=== PATIENT | female | born 1955 | race American Indian/Alaskan Native ===

== ENCOUNTER 2017-01-30 20:38 | Inpatient (IN) | payer OTHER ==
[2017-01-30] MEDS ORDERED: NACL 0.9% 1000 ML 1,000 ML IV ONE ×2 (21:28)
[2017-01-30 21:56] LABS: Alanine Aminotransferase 12 units/L (7-56); Albumin 3.5 g/dL (3.9-5); Albumin/Globulin Ratio 0.8 %; Alkaline Phosphatase 173 units/L (35-129); Anion Gap 21 mmol/L; BUN/Creatinine Ratio 46.66; Blood Urea Nitrogen 42 mg/dL (7-17); Calcium 11.7 mg/dL (8.4-10.2); Carbon Dioxide 29 mmol/L (22-30); Glucose 176 mg/dL (65-100); Hematocrit 31.9 % (30.3-42.9); Hemoglobin 9.7 gm/dl (10.1-14.3); Mean Corpuscular HGB Conc 30 % (30-34); Mean Corpuscular Volume 73 fl (79-97); Platelet Count 503 K/mm3 (140-440); Potassium 4.4 mmol/L (3.6-5.0); Red Blood Count 4.35 M/mm3 (3.65-5.03); Sodium 139 mmol/L (137-145); Total Protein 7.8 g/dL (6.3-8.2); White Blood Count 19.6 K/mm3 (4.5-11.0)
--- NOTE | 2017-01-30 22:03 | Emergency Department Report ---
ED General Adult HPI - General Chief complaint: Altered Mental Status Stated complaint: POSS DEHYDRATION/VOMITING/CANCER Time Seen by Provider: 01/30/17 21:28 Source: family, old records reviewed Mode of arrival: Wheelchair Limitations: No Limitations - History of Present Illness Initial comments: 61-year-old female with a past medical history of cervical cancer presents to the hospital complains of not eating or drinking the last several days. Patient only taken her oxycodone as needed for pain. Mild lethargy reported by patient alert and oriented 3. Patient denies any pain, fever, nausea, vomiting , dysuria, cough, or shortness of breath. Patient was receiving chemotherapy every 21 days but has not received a chemotherapy treatment in the past 2 months. Positive surgical history of total radical hysterectomy secondary to cervical cancer. Her oncologist is Dr. Peralta currently affiliated with [facility]. Patient has very limited medical records available here for evaluation. Patient also having intermittent vomiting for last 1-2 weeks worse the last several days. - Related Data Allergies Allergy/AdvReac Type Severity Reaction Status Date / Time meperidine HCl [From Demerol] Allergy Hives Verified 05/20/16 10:17 ED Review of Systems ROS: Stated complaint: POSS DEHYDRATION/VOMITING/CANCER Other details as noted in HPI Comment: All other systems reviewed and negative Other: Constitutional: No fevers chills Eyes: No eye pain visual changes ENT: No ear pain or throat pain Neck: Denies pain Respiratory: Denies cough wheezing shortness of breath Cardiovascular: Denies chest pain, palpitations, syncope GI: Denies abdominal pain : Denies dysuria Musculoskeletal: Denies back pain Skin: Denies rash, lesions, erythema Neurologic: Denies headache, numbness Psychiatric: Denies suicidal ideation, hallucinations ED Past Medical Hx - Past Medical History Previous Medical History?: Yes Hx of Cancer: Yes (cervical cancer) - Surgical History Past Surgical History?: Yes Additional Surgical History: hysterectomy - Social History Smoking Status: Never Smoker Substance Use Type: None ED Physical Exam - General Limitations: No Limitations - Other Other exam information: General: No limitations, thin and frail-appearing Head exam: Atraumatic, normocephalic Eyes exam: Normal appearance ENT: Moist mucous membrane, normal oropharynx Neck exam: Normal inspection, full range of motion, no meningismus nontender Respiratory exam: Faint crackles at the bases without wheezes, rales, or tachypnea Cardiovascular: Tachycardia regular rhythm. Heart rate increases from 130s to 160s was sitting up in the bed and also at rest will go down to the 80s. Repeat blood pressure 113/82 prior to initiated IV fluid Abdomen: Soft, appears to be distended but patient states that her abdomen is normal size. Denies previous paracentesis. Nontender to palpation or rebound or guarding Extremity: Full range of motion normal inspection no deformity, no edema, no calf tenderness, no leg asymmetry Back: Normal Inspection, full range of motion, no tenderness Neurologic: Alert, oriented x3, cranial nerves intact, no motor or sensory deficit Psychiatric: normal affect, normal mood Skin: Warm, dry, intact ED Course Vital Signs 01/30/17 01/30/17 01/30/17 20:48 21:12 21:30 Temperature 98.4 F Pulse Rate 148 H 148 H Respiratory 12 31 H Rate Blood Pressure 89/58 72/56 O2 Sat by Pulse 96 100 95 Oximetry 01/30/17 01/30/17 01/30/17 22:00 22:17 22:30 Temperature Pulse Rate 136 H 139 H Respiratory 20 21 31 H Rate Blood Pressure 110/87 110/80 104/72 O2 Sat by Pulse 88 84 90 Oximetry 01/30/17 01/30/17 01/31/17 23:00 23:30 00:21 Temperature Pulse Rate 136 H 128 H 134 H Respiratory 35 H 29 H 34 H Rate Blood Pressure 102/70 88/70 105/77 O2 Sat by Pulse 87 97 94 Oximetry 01/31/17 01/31/17 01/31/17 00:30 01:01 01:31 Temperature Pulse Rate 131 H 139 H Respiratory 34 H 21 Rate Blood Pressure 100/74 92/65 96/69 O2 Sat by Pulse 94 94 66 L Oximetry 01/31/17 01/31/17 01/31/17 02:01 02:30 02:55 Temperature Pulse Rate 141 H 134 H Respiratory 33 H 25 H 12 Rate Blood Pressure 53/34 105/80 O2 Sat by Pulse 85 97 90 Oximetry 01/31/17 01/31/17 01/31/17 03:00 03:31 04:25 Temperature Pulse Rate 135 H Respiratory 16 Rate Blood Pressure 117/72 101/70 103/75 O2 Sat by Pulse 95 95 Oximetry 01/31/17 04:30 Temperature Pulse Rate 124 H Respiratory 22 Rate Blood Pressure 78/46 O2 Sat by Pulse 95 Oximetry - Reevaluation(s) Reevaluation #1: 01/31/17 05:10 During ED stay. Attempted to obtain CT however, patient is supine she developed vomiting. She was treated with Zofran 8 mg without improvement. Then patient gave her Reglan and Benadryl is still having nausea when supine. NG tube ordered with viscous lidocaine. Initial output minimal. Patient vomited after NG tube and then suctioning was more effective of NG tube. Patient then finally able to obtain CT scan while supine. 01/31/17 05:32 Nurse directed to reposition ngt tube after ct scan review - Consultations Consultation #1: 01/30/17 23:10 case d/w Dr Camacho cardiology, will evaluate pt during admission Consultation #2: 01/31/17 05:31 Dr Fajardo surgeon consulted. Will evaluate pt ED Medical Decision Making - Lab Data Result diagrams: 01/30/17 20:58 01/30/17 20:58 Lab Results 01/30/17 01/30/17 01/30/17 Range/Units 20:58 20:58 20:58 WBC 19.6 H (4.5-11.0) K/mm3 RBC 4.35 (3.65-5.03) M/mm3 Hgb 9.7 L (10.1-14.3) gm/dl Hct 31.9 (30.3-42.9) % MCV 73 L (79-97) fl MCH 22 L (28-32) pg MCHC 30 (30-34) % RDW 19.0 H (13.2-15.2) % Plt Count 503 H (140-440) K/mm3 Lymph % (Auto) 6.0 L (13.4-35.0) % [place] % (Auto) 5.0 (0.0-7.3) % Eos % (Auto) 0.0 (0.0-4.3) % Baso % (Auto) 0.0 (0.0-1.8) % Lymph # 1.2 (1.2-5.4) K/mm3 Pitt # 1.0 H (0.0-0.8) K/mm3 Eos # 0.0 (0.0-0.4) K/mm3 Baso # 0.0 (0.0-0.1) K/mm3 Seg Neutrophils % 89.0 H (40.0-70.0) % Seg Neutrophils # 17.4 H (1.8-7.7) K/mm3 VBG pH (7.320-7.420) Sodium 139 (137-145) mmol/L Potassium 4.4 (3.6-5.0) mmol/L Chloride 93.0 L (98-107) mmol/L Carbon Dioxide 29 (22-30) mmol/L Anion Gap 21 mmol/L BUN 42 H (7-17) mg/dL Creatinine 0.9 (0.7-1.2) mg/dL Estimated GFR > 60 ml/min BUN/Creatinine Ratio 46.66 % Glucose 176 H (65-100) mg/dL Lactic Acid 3.60 H* (0.7-2.0) mmol/L Calcium 11.7 H (8.4-10.2) mg/dL Magnesium 2.20 (1.7-2.3) mg/dL Total Bilirubin 0.60 (0.1-1.2) mg/dL AST 20 (5-40) units/L ALT 12 (7-56) units/L Alkaline Phosphatase 173 H (35-129) units/L Total Creatine Kinase (30-135) units/L CK-MB (CK-2) (0.0-4.0) ng/mL CK-MB (CK-2) Rel Index (0-4) Troponin T (0.00-0.029) ng/mL Total Protein 7.8 (6.3-8.2) g/dL Albumin 3.5 L (3.9-5) g/dL Albumin/Globulin Ratio 0.8 % Triglycerides (2-149) mg/dL Cholesterol (50-199) mg/dL LDL Cholesterol Direct (50-130) mg/dL HDL Cholesterol (40-59) mg/dL Cholesterol/HDL Ratio % TSH (0.270-4.200) mlU/mL Urine Color (Yellow) Urine Turbidity (Clear) Urine pH (5.0-7.0) Ur Specific [place] (1.003-1.030) Urine Protein (Negative) mg/dL Urine Glucose (UA) (Negative) mg/dL Urine Ketones (Negative) mg/dL Urine Blood (Negative) Urine Nitrite (Negative) Urine Bilirubin (Negative) Urine Urobilinogen (<2.0) mg/dL Ur Leukocyte Esterase (Negative) Urine WBC (Auto) (0.0-6.0) /HPF Urine RBC (Auto) (0.0-6.0) /HPF U Epithel Cells (Auto) (0-13.0) /HPF Urine Bacteria (Auto) (Negative) /HPF Uric Acid Crystals Urine Mucus /HPF Salicylates (2.8-20.0) mg/dL Urine Opiates Screen Urine Methadone Screen Acetaminophen (10.0-30.0) ug/mL Ur Barbiturates Screen Ur Phencyclidine Scrn Ur Amphetamines Screen U Benzodiazepines Scrn Urine Cocaine Screen U Marijuana (THC) Screen Drugs of Abuse Note Plasma/Serum Alcohol (0-0.07) gm% 01/30/17 01/30/17 01/30/17 Range/Units 20:58 20:58 20:58 WBC (4.5-11.0) K/mm3 RBC (3.65-5.03) M/mm3 Hgb (10.1-14.3) gm/dl Hct (30.3-42.9) % MCV (79-97) fl MCH (28-32) pg MCHC (30-34) % RDW (13.2-15.2) % Plt Count (140-440) K/mm3 Lymph % (Auto) (13.4-35.0) % Pitt % (Auto) (0.0-7.3) % Eos % (Auto) (0.0-4.3) % Baso % (Auto) (0.0-1.8) % Lymph # (1.2-5.4) K/mm3 Pitt # (0.0-0.8) K/mm3 Eos # (0.0-0.4) K/mm3 Baso # (0.0-0.1) K/mm3 Seg Neutrophils % (40.0-70.0) % Seg Neutrophils # (1.8-7.7) K/mm3 VBG pH (7.320-7.420) Sodium (137-145) mmol/L Potassium (3.6-5.0) mmol/L Chloride (98-107) mmol/L Carbon Dioxide (22-30) mmol/L Anion Gap mmol/L BUN (7-17) mg/dL Creatinine (0.7-1.2) mg/dL Estimated GFR ml/min BUN/Creatinine Ratio % Glucose (65-100) mg/dL Lactic Acid (0.7-2.0) mmol/L Calcium (8.4-10.2) mg/dL Magnesium (1.7-2.3) mg/dL Total Bilirubin (0.1-1.2) mg/dL AST (5-40) units/L ALT (7-56) units/L Alkaline Phosphatase (35-129) units/L Total Creatine Kinase (30-135) units/L CK-MB (CK-2) (0.0-4.0) ng/mL CK-MB (CK-2) Rel Index (0-4) Troponin T (0.00-0.029) ng/mL Total Protein (6.3-8.2) g/dL Albumin (3.9-5) g/dL Albumin/Globulin Ratio % Triglycerides (2-149) mg/dL Cholesterol (50-199) mg/dL LDL Cholesterol Direct (50-130) mg/dL HDL Cholesterol (40-59) mg/dL Cholesterol/HDL Ratio % TSH 1.490 (0.270-4.200) mlU/mL Urine Color (Yellow) Urine Turbidity (Clear) Urine pH (5.0-7.0) Ur Specific [place] (1.003-1.030) Urine Protein (Negative) mg/dL Urine Glucose (UA) (Negative) mg/dL Urine Ketones (Negative) mg/dL Urine Blood (Negative) Urine Nitrite (Negative) Urine Bilirubin (Negative) Urine Urobilinogen (<2.0) mg/dL Ur Leukocyte Esterase (Negative) Urine WBC (Auto) (0.0-6.0) /HPF Urine RBC (Auto) (0.0-6.0) /HPF U Epithel Cells (Auto) (0-13.0) /HPF Urine Bacteria (Auto) (Negative) /HPF Uric Acid Crystals Urine Mucus /HPF Salicylates < 0.3 L (2.8-20.0) mg/dL Urine Opiates Screen Urine Methadone Screen Acetaminophen < 15.0 (10.0-30.0) ug/mL Ur Barbiturates Screen Ur Phencyclidine Scrn Ur Amphetamines Screen U Benzodiazepines Scrn Urine Cocaine Screen U Marijuana (THC) Screen Drugs of Abuse Note Plasma/Serum Alcohol (0-0.07) gm% 01/30/17 01/30/17 01/30/17 Range/Units 20:58 21:50 22:45 WBC (4.5-11.0) K/mm3 RBC (3.65-5.03) M/mm3 Hgb (10.1-14.3) gm/dl Hct (30.3-42.9) % MCV (79-97) fl MCH (28-32) pg MCHC (30-34) % RDW (13.2-15.2) % Plt Count (140-440) K/mm3 Lymph % (Auto) (13.4-35.0) % Pitt % (Auto) (0.0-7.3) % Eos % (Auto) (0.0-4.3) % Baso % (Auto) (0.0-1.8) % Lymph # (1.2-5.4) K/mm3 Pitt # (0.0-0.8) K/mm3 Eos # (0.0-0.4) K/mm3 Baso # (0.0-0.1) K/mm3 Seg Neutrophils % (40.0-70.0) % Seg Neutrophils # (1.8-7.7) K/mm3 VBG pH 7.370 (7.320-7.420) Sodium (137-145) mmol/L Potassium (3.6-5.0) mmol/L Chloride (98-107) mmol/L Carbon Dioxide (22-30) mmol/L Anion Gap mmol/L BUN (7-17) mg/dL Creatinine (0.7-1.2) mg/dL Estimated GFR ml/min BUN/Creatinine Ratio % Glucose (65-100) mg/dL Lactic Acid (0.7-2.0) mmol/L Calcium (8.4-10.2) mg/dL Magnesium (1.7-2.3) mg/dL Total Bilirubin (0.1-1.2) mg/dL AST (5-40) units/L ALT (7-56) units/L Alkaline Phosphatase (35-129) units/L Total Creatine Kinase (30-135) units/L CK-MB (CK-2) (0.0-4.0) ng/mL CK-MB (CK-2) Rel Index (0-4) Troponin T (0.00-0.029) ng/mL Total Protein (6.3-8.2) g/dL Albumin (3.9-5) g/dL Albumin/Globulin Ratio % Triglycerides (2-149) mg/dL Cholesterol (50-199) mg/dL LDL Cholesterol Direct (50-130) mg/dL HDL Cholesterol (40-59) mg/dL Cholesterol/HDL Ratio % TSH (0.270-4.200) mlU/mL Urine Color [place] (Yellow) Urine Turbidity Cloudy (Clear) Urine pH 5.0 (5.0-7.0) Ur Specific [place] 1.023 (1.003-1.030) Urine Protein 100 mg/dl (Negative) mg/dL Urine Glucose (UA) 50 (Negative) mg/dL Urine Ketones Tr (Negative) mg/dL Urine Blood Mod (Negative) Urine Nitrite Neg (Negative) Urine Bilirubin Neg (Negative) Urine Urobilinogen 4.0 (<2.0) mg/dL Ur Leukocyte Esterase Lg (Negative) Urine WBC (Auto) 55.0 H (0.0-6.0) /HPF Urine RBC (Auto) 106.0 (0.0-6.0) /HPF U Epithel Cells (Auto) 4.0 (0-13.0) /HPF Urine Bacteria (Auto) 1+ (Negative) /HPF Uric Acid Crystals 1+ Urine Mucus 1+ /HPF Salicylates (2.8-20.0) mg/dL Urine Opiates Screen Urine Methadone Screen Acetaminophen (10.0-30.0) ug/mL Ur Barbiturates Screen Ur Phencyclidine Scrn Ur Amphetamines Screen U Benzodiazepines Scrn Urine Cocaine Screen U Marijuana (THC) Screen Drugs of Abuse Note Plasma/Serum Alcohol < 0.01 (0-0.07) gm% 01/30/17 01/30/17 01/31/17 Range/Units 22:45 Unknown 01:02 WBC (4.5-11.0) K/mm3 RBC (3.65-5.03) M/mm3 Hgb (10.1-14.3) gm/dl Hct (30.3-42.9) % MCV (79-97) fl MCH (28-32) pg MCHC (30-34) % RDW (13.2-15.2) % Plt Count (140-440) K/mm3 Lymph % (Auto) (13.4-35.0) % Pitt % (Auto) (0.0-7.3) % Eos % (Auto) (0.0-4.3) % Baso % (Auto) (0.0-1.8) % Lymph # (1.2-5.4) K/mm3 Pitt # (0.0-0.8) K/mm3 Eos # (0.0-0.4) K/mm3 Baso # (0.0-0.1) K/mm3 Seg Neutrophils % (40.0-70.0) % Seg Neutrophils # (1.8-7.7) K/mm3 VBG pH (7.320-7.420) Sodium (137-145) mmol/L Potassium (3.6-5.0) mmol/L Chloride (98-107) mmol/L Carbon Dioxide (22-30) mmol/L Anion Gap mmol/L BUN (7-17) mg/dL Creatinine (0.7-1.2) mg/dL Estimated GFR ml/min BUN/Creatinine Ratio % Glucose (65-100) mg/dL Lactic Acid (0.7-2.0) mmol/L Calcium (8.4-10.2) mg/dL Magnesium (1.7-2.3) mg/dL Total Bilirubin (0.1-1.2) mg/dL AST (5-40) units/L ALT (7-56) units/L Alkaline Phosphatase (35-129) units/L Total Creatine Kinase 55 (30-135) units/L CK-MB (CK-2) 4.0 (0.0-4.0) ng/mL CK-MB (CK-2) Rel Index 7.2 H (0-4) Troponin T 0.244 H* 0.179 H* D (0.00-0.029) ng/mL Total Protein (6.3-8.2) g/dL Albumin (3.9-5) g/dL Albumin/Globulin Ratio % Triglycerides 202 H (2-149) mg/dL Cholesterol 145 (50-199) mg/dL LDL Cholesterol Direct 57 (50-130) mg/dL HDL Cholesterol 48 (40-59) mg/dL Cholesterol/HDL Ratio 3.02 % TSH (0.270-4.200) mlU/mL Urine Color (Yellow) Urine Turbidity (Clear) Urine pH (5.0-7.0) Ur Specific [place] (1.003-1.030) Urine Protein (Negative) mg/dL Urine Glucose (UA) (Negative) mg/dL Urine Ketones (Negative) mg/dL Urine Blood (Negative) Urine Nitrite (Negative) Urine Bilirubin (Negative) Urine Urobilinogen (<2.0) mg/dL Ur Leukocyte Esterase (Negative) Urine WBC (Auto) (0.0-6.0) /HPF Urine RBC (Auto) (0.0-6.0) /HPF U Epithel Cells (Auto) (0-13.0) /HPF Urine Bacteria (Auto) (Negative) /HPF Uric Acid Crystals Urine Mucus /HPF Salicylates (2.8-20.0) mg/dL Urine Opiates Screen Presumptive negative Urine Methadone Screen Presumptive negative Acetaminophen (10.0-30.0) ug/mL Ur Barbiturates Screen Presumptive negative Ur Phencyclidine Scrn Presumptive negative Ur Amphetamines Screen Presumptive negative U Benzodiazepines Scrn Presumptive negative Urine Cocaine Screen Presumptive negative U Marijuana (THC) Screen Presumptive negative Drugs of Abuse Note Disclamer Plasma/Serum Alcohol (0-0.07) gm% 01/31/17 Range/Units 02:40 WBC (4.5-11.0) K/mm3 RBC (3.65-5.03) M/mm3 Hgb (10.1-14.3) gm/dl Hct (30.3-42.9) % MCV (79-97) fl MCH (28-32) pg MCHC (30-34) % RDW (13.2-15.2) % Plt Count (140-440) K/mm3 Lymph % (Auto) (13.4-35.0) % Pitt % (Auto) (0.0-7.3) % Eos % (Auto) (0.0-4.3) % Baso % (Auto) (0.0-1.8) % Lymph # (1.2-5.4) K/mm3 Pitt # (0.0-0.8) K/mm3 Eos # (0.0-0.4) K/mm3 Baso # (0.0-0.1) K/mm3 Seg Neutrophils % (40.0-70.0) % Seg Neutrophils # (1.8-7.7) K/mm3 VBG pH (7.320-7.420) Sodium (137-145) mmol/L Potassium (3.6-5.0) mmol/L Chloride (98-107) mmol/L Carbon Dioxide (22-30) mmol/L Anion Gap mmol/L BUN (7-17) mg/dL Creatinine (0.7-1.2) mg/dL Estimated GFR ml/min BUN/Creatinine Ratio % Glucose (65-100) mg/dL Lactic Acid (0.7-2.0) mmol/L Calcium (8.4-10.2) mg/dL Magnesium (1.7-2.3) mg/dL Total Bilirubin (0.1-1.2) mg/dL AST (5-40) units/L ALT (7-56) units/L Alkaline Phosphatase (35-129) units/L Total Creatine Kinase (30-135) units/L CK-MB (CK-2) (0.0-4.0) ng/mL CK-MB (CK-2) Rel Index (0-4) Troponin T 0.194 H* (0.00-0.029) ng/mL Total Protein (6.3-8.2) g/dL Albumin (3.9-5) g/dL Albumin/Globulin Ratio % Triglycerides (2-149) mg/dL Cholesterol (50-199) mg/dL LDL Cholesterol Direct (50-130) mg/dL HDL Cholesterol (40-59) mg/dL Cholesterol/HDL Ratio % TSH (0.270-4.200) mlU/mL Urine Color (Yellow) Urine Turbidity (Clear) Urine pH (5.0-7.0) Ur Specific [place] (1.003-1.030) Urine Protein (Negative) mg/dL Urine Glucose (UA) (Negative) mg/dL Urine Ketones (Negative) mg/dL Urine Blood (Negative) Urine Nitrite (Negative) Urine Bilirubin (Negative) Urine Urobilinogen (<2.0) mg/dL Ur Leukocyte Esterase (Negative) Urine WBC (Auto) (0.0-6.0) /HPF Urine RBC (Auto) (0.0-6.0) /HPF U Epithel Cells (Auto) (0-13.0) /HPF Urine Bacteria (Auto) (Negative) /HPF Uric Acid Crystals Urine Mucus /HPF Salicylates (2.8-20.0) mg/dL Urine Opiates Screen Urine Methadone Screen Acetaminophen (10.0-30.0) ug/mL Ur Barbiturates Screen Ur Phencyclidine Scrn Ur Amphetamines Screen U Benzodiazepines Scrn Urine Cocaine Screen U Marijuana (THC) Screen Drugs of Abuse Note Plasma/Serum Alcohol (0-0.07) gm% - EKG Data -: EKG Interpreted by Me (sinus tach 148, LAE, Q wave inferior and possible anterolateral infarct) - EKG Data When compared to previous EKG there are: changes noted (05/22/2016 EKG shows no previous Q waves or anterolateral infarct) - Radiology Data Radiology results: report reviewed, image reviewed (chest x-ray: Bilateral pleural effusion) interpreted by me: abd xray flat and upright: no afl (interpreted by me) CT angiogram chest: Bilateral lower lobe atelectasis with moderate effusions. Mild left upper lung infiltrate. NG tube curled upon itself in the lower esophagus. No PE CT abdomen and pelvis with IV contrast: Positive IVC filter. Cholelithiasis. Peritoneal metastasis/carcinomatosis with omental caking. Mid to distal small bowel obstruction likely caused by metastatic disease. Multiple low density livers lesions. Cannot exclude or confirm hepatic metastasis. Moderate right hydronephrosis. Ureter stent present extending from proximal ureter to the bladder. Small pocket of fluid collections along the anterior margin of the liver. This is nonspecific but most likely related to metastatic disease. Largest size is 6.3 x 2.4 cm. Bilateral moderate pleural effusions. Bilateral lower lobe consolidations which are likely atelectasis. Lingular consolidation which could be infiltrate. Distal esophagus is fluid filled containing and a mildly dilated. This may be due to SBO (mid to distal sbo). - Medical Decision Making Plan admit patient to the hospital. Patient's significant tachycardia left is secondary to dehydration and possible bilateral pleural effusions. No signs of hypoxia at this time. Antibiotics ordered: Vancomycin and Zosyn Blood cultures, UA, urine culture pending at disposition EKG changes noted initial trop mildly elevated. ASA ordered. cardiology consulted. Repeat trop ordered. Repeat values stable Hosp informed Ct angio chest to r/o associated PE/pneumonia (pt unsure if port is a power port ) and ct abd/pelvis ordered with IV contrast given pt's vomiting and leukocytosis to r/o intrabdominal pathology. pending at dispo Results reviewed and surgery consulted - Differential Diagnosis dehydration, sepsis, pneumonia, UTI, PE Critical Care Time: No Critical care attestation.: If time is entered above; I have spent that time in minutes in the direct care of this critically ill patient, excluding procedure time. ED Disposition Clinical Impression: Bilateral pleural effusion, Dehydration, Sinus tachycardia, Cervical cancer, Sepsis, Elevated lactic acid level, Vomiting, Elevated troponin, Acute electrocardiogram changes, Anemia, UTI (urinary tract infection), SBO (small bowel obstruction), Pneumonia, Presence of IVC filter, Hydronephrosis of right kidney, Ureteral stent retained Disposition: [id number] OP ADMIT IP TO THIS HOSP Is pt being admited?: Yes Does the pt Need Aspirin: Yes Condition: Stable Time of Disposition: 22:22 (Dr Garner/hosp)
[2017-01-30 22:05] LABS: Mean Corpuscular Hemoglobin 22 pg (28-32)
[2017-01-30] MEDS ORDERED: ZOSYN/NS 4.5GM/100ML 4.5 GM/100 ML VIAL IV ONE (22:15)
[2017-01-30] MEDS ORDERED: VANCOMYCIN/NS 1 GM/250 ML 1 GM/250 ML BAG IV ONE (22:15)
[2017-01-30] MEDS ORDERED: ASPIRIN PO ONE (22:38)
[2017-01-30 23:03] LABS: Urine Drugs of Abuse Note Disclamer
[2017-01-30] MEDS ORDERED: NACL ONE (23:40)
[2017-01-30 23:48] LABS: Bacteria,Urine 1+ /HPF (Negative); Bilirubin,Urine NEG (Negative); Blood,Urine MOD (Negative); Ketones,Urine TR mg/dL (Negative); Leukocyte Esterase,Urine LG (Negative); Mucus,Urine 1+ /HPF; Nitrite,Urine NEG (Negative); Uric Acid Crystals,Urine 1+
[2017-01-31] MEDS ORDERED: ZOFRAN IV ONE ×2 (00:33→00:34)
[2017-01-31] MEDS ORDERED: BENADRYL IV ONE (01:52)
[2017-01-31] MEDS ORDERED: REGLAN IV ONE (01:52)
[2017-01-31] MEDS ORDERED: NACL 0.9% 1000 ML 2,000 ML ONE (02:12)
[2017-01-31] MEDS ORDERED: LIDOCAINE VISCOUS 2% PO ONE (02:53)
--- NOTE | 2017-01-31 04:50 | Cat Scan Report ---
FINAL REPORT PROCEDURE: CT ANGIO CHEST TECHNIQUE: Computerized tomographic angiography of the chest was performed after the IV injection of iodinated nonionic contrast including image processing. The image data was postprocessed using 2-dimensional multiplanar reformatted (MPR) and 3-dimensional (MIP and/or volume rendered) techniques. HISTORY: b/l effusions, cervical cancer COMPARISON: No prior studies are available for comparison. FINDINGS: Heart and pericardium: Normal. Thoracic aorta: Normal. Pulmonary vasculature: Normal. Lymph nodes: No enlarged thoracic lymph nodes. Lungs: Bilateral lower lung atelectasis with moderate effusions. Mild left upper lung infiltrate. The nasogastric tube is curled upon itself in the lower esophagus.. Pleural space: No effusion, thickening, or pneumothorax. Musculoskeletal structures: No significant abnormality. Upper abdominal structures: No significant abnormality. IMPRESSION: The traits with moderate effusions. There is no evidence of pulmonary arterial emboli. The nasogastric tube is curled upon itself in the lower esophagus.
--- NOTE | 2017-01-31 05:10 | Cat Scan Report ---
FINAL REPORT EXAM: CT ABDOMEN PELVIS W CON HISTORY: vomting, cevical cancer TECHNIQUE: CT abdomen and pelvis performed. Images extend from diaphragm to pubic symphysis. 100 cc Omnipaque 350 IV was administered. Coronal and sagittal reformatted images were obtained. PRIORS: 06/20/2016 FINDINGS: There is pulmonary consolidation in visualized lingula. There is also infiltrate versus atelectasis in the lower lobes at the lung bases. There are moderate pleural effusions bilaterally. The distal esophagus is fluid containing and mildly dilated. There is a loculated fluid collection at the anterior margin of the liver measuring 6.3 by 2.4 cm. There are additional tiny fluid loculations along the anterior liver margin. There is enhancing nodularity along the anterior peritoneal surface. There is also some soft tissue density in the omentum. Findings are consistent with peritoneal carcinomatosis and omental caking. There are some nonspecific very tiny low-density liver lesions. There is poorly defined larger liver lesion in inferior right lobe. I cannot confirm or exclude hepatic metastatic disease. There is cholelithiasis. There is an IVC filter present. There is no abdominal aortic aneurysm. Small bowel loops are fluid containing and dilated. There is small bowel caliber transition seen in the anterior abdomen. Findings are consistent with mid to distal small bowel obstruction. There is moderate right hydronephrosis. There is a right ureteral stent extending from the proximal ureter to the bladder. The presence of hydronephrosis suggests possible stent malfunction. Tissue planes in the pelvis are blurred. Bowel margins are irregular and poorly defined. This could represent inflammatory change and/or metastatic disease. IMPRESSION: Peritoneal metastases/carcinomatosis with omental caking. There is mid to distal small bowel obstruction likely caused by metastatic disease. There are multiple very small low-density liver lesions. I cannot confirm or exclude hepatic metastatic disease. Cholelithiasis. Moderate right hydronephrosis. Ureteral stent present extending from proximal ureter to the bladder. There is a small loculated fluid collections along the anterior margin of the liver. Largest measures 6.3 x 2.4 cm. This is a nonspecific but most likely relates to metastatic disease. Bilateral moderate pleural effusions. Bilateral lower lobe consolidations seen which are likely atelectasis. There is also lingular consolidation which could be infiltrate. Distal esophagus is fluid containing and mildly dilated. This may be on the basis of SBO.
[2017-01-31] MEDS ORDERED: MORPHINE IV PRN (05:35)
[2017-01-31] MEDS ORDERED: DULCOLAX PR PRN (05:35)
[2017-01-31] MEDS ORDERED: REGLAN IV PRN (05:35)
[2017-01-31] MEDS ORDERED: MILK OF MAGNESIA PO PRN (05:35)
[2017-01-31] MEDS ORDERED: TYLENOL PO PRN (05:35)
[2017-01-31] MEDS ORDERED: ZOFRAN IV PRN (05:35)
--- NOTE | 2017-01-31 05:45 | History and Physical Report ---
History of Present Illness Date of examination: 01/31/17 History of present illness: This is a 61-year-old woman with a history of metastatic cervical cancer comes emergency room with complaints of nausea vomiting 1 week intermittently. Her vomiting has worsened over the last 2 days, no appetite, feels weak. Patient status post chemotherapy 4 weeks ago, she met with her oncologist on the last visit, he recommended that the patient be placed on hospice Patient denies chest pain, palpitation, shortness of breath, cough, abdominal pain, hematochezia, dysuria, frequency, focal weakness, dysarthria, fever chills , polydipsia polyuria, hot or cold intolerance, easy bruisability, or rash or bleeding from mucosal membrane, rhinorrhea, epistaxis, earache, tinnitus, blurry vision, eye discharge, anxiety, depression. Other review of systems negative PAST SURGICAL HISTORY: Hysterectomy SOCIAL HISTORY: Denies alcohol, tobacco, drugs FAMILY HISTORY: Hypertension Medications and Allergies Allergies Allergy/AdvReac Type Severity Reaction Status Date / Time meperidine HCl [From Demerol] Allergy Hives Verified 05/20/16 10:17 Home Medications Medication Instructions Recorded Confirmed Last Taken Type Promethazine [Phenergan 6.25 mg/5 10 ml PO Q6H PRN 30 Days 02/01/17 Unknown Rx ml ORAL LIQ] Active Meds: Active Medications Enoxaparin Sodium (Lovenox) 30 mg SUB-Q QDAY THUY Levofloxacin/Dextrose (Levaquin 750mg/150ml) 750 mg in 150 mls @ 100 mls/hr IV Q24HR THUY PRN Reason: Protocol Piperacillin Sod/Tazobactam Sod (Zosyn/Ns 4.5gm/100ml) 4.5 gm in 100 mls @ 200 mls/hr IV Q6HR THUY PRN Reason: Protocol Metoclopramide HCl (Reglan) 10 mg IV Q6H PRN PRN Reason: Nausea And Vomiting Morphine Sulfate (Morphine) 2 mg IV Q4H PRN PRN Reason: Pain, Moderate (4-6) Ondansetron HCl (Zofran) 4 mg IV Q4H PRN PRN Reason: N/V unrelieved by Reglan Exam - Physical Exam Narrative exam: Gen. appearance: Patient lying in bed, no apparent distress HEENT: Normocephalic, atraumatic, pupils equally round and reactive to light, extraocular movement intact, and no sclericterus,. No JVD or thyromegaly or nodule,neck supple, no carotid bruit ,mucous membranes moist, no exudate or erythema Heart: S1, S2, regular rate and rhythm Lungs: Clear to auscultation bilaterally, breathing comfortable Abdomen: He crease bowel sounds, nontender, distended, no organomegaly Extremity: No edema, cyanosis, clubbing Skin: No rash, nodules, warm, dry Neuro: Oriented 3, cranial nerves II-12 intact, speech is fluent, motor and sensory intact - Constitutional Vitals: Temp Pulse Resp BP Pulse Ox 98.4 F 124 H 22 78/46 95 01/30/17 20:48 01/31/17 04:30 01/31/17 04:30 01/31/17 04:30 01/31/17 04:30 Results - Labs CBC & Chem 7: 02/01/17 07:06 02/01/17 07:06 Labs: Abnormal lab results 01/30/17 01/30/17 01/30/17 Range/Units 20:58 20:58 20:58 WBC 19.6 H (4.5-11.0) K/mm3 Hgb 9.7 L (10.1-14.3) gm/dl MCV 73 L (79-97) fl MCH 22 L (28-32) pg RDW 19.0 H (13.2-15.2) % Plt Count 503 H (140-440) K/mm3 Lymph % (Auto) 6.0 L (13.4-35.0) % Lewis # 1.0 H (0.0-0.8) K/mm3 Seg Neutrophils % 89.0 H (40.0-70.0) % Seg Neutrophils # 17.4 H (1.8-7.7) K/mm3 Chloride 93.0 L (98-107) mmol/L BUN 42 H (7-17) mg/dL Glucose 176 H (65-100) mg/dL Lactic Acid 3.60 H* (0.7-2.0) mmol/L Calcium 11.7 H (8.4-10.2) mg/dL Alkaline Phosphatase 173 H (35-129) units/L CK-MB (CK-2) Rel Index (0-4) Troponin T (0.00-0.029) ng/mL Albumin 3.5 L (3.9-5) g/dL Triglycerides (2-149) mg/dL Urine WBC (Auto) (0.0-6.0) /HPF Salicylates (2.8-20.0) mg/dL 01/30/17 01/30/17 01/30/17 Range/Units 20:58 22:45 Unknown WBC (4.5-11.0) K/mm3 Hgb (10.1-14.3) gm/dl MCV (79-97) fl MCH (28-32) pg RDW (13.2-15.2) % Plt Count (140-440) K/mm3 Lymph % (Auto) (13.4-35.0) % Lewis # (0.0-0.8) K/mm3 Seg Neutrophils % (40.0-70.0) % Seg Neutrophils # (1.8-7.7) K/mm3 Chloride (98-107) mmol/L BUN (7-17) mg/dL Glucose (65-100) mg/dL Lactic Acid (0.7-2.0) mmol/L Calcium (8.4-10.2) mg/dL Alkaline Phosphatase (35-129) units/L CK-MB (CK-2) Rel Index 7.2 H (0-4) Troponin T 0.244 H* (0.00-0.029) ng/mL Albumin (3.9-5) g/dL Triglycerides 202 H (2-149) mg/dL Urine WBC (Auto) 55.0 H (0.0-6.0) /HPF Salicylates < 0.3 L (2.8-20.0) mg/dL 01/31/17 01/31/17 Range/Units 01:02 02:40 WBC (4.5-11.0) K/mm3 Hgb (10.1-14.3) gm/dl MCV (79-97) fl MCH (28-32) pg RDW (13.2-15.2) % Plt Count (140-440) K/mm3 Lymph % (Auto) (13.4-35.0) % Lewis # (0.0-0.8) K/mm3 Seg Neutrophils % (40.0-70.0) % Seg Neutrophils # (1.8-7.7) K/mm3 Chloride (98-107) mmol/L BUN (7-17) mg/dL Glucose (65-100) mg/dL Lactic Acid (0.7-2.0) mmol/L Calcium (8.4-10.2) mg/dL Alkaline Phosphatase (35-129) units/L CK-MB (CK-2) Rel Index (0-4) Troponin T 0.179 H* D 0.194 H* (0.00-0.029) ng/mL Albumin (3.9-5) g/dL Triglycerides (2-149) mg/dL Urine WBC (Auto) (0.0-6.0) /HPF Salicylates (2.8-20.0) mg/dL - Imaging and Cardiology EKG: image reviewed Chest x-ray: image reviewed Abdominal x-ray: image reviewed CT scan - abdomen: report reviewed CT scan - chest: report reviewed CT scan - pelvis: report reviewed Assessment and Plan Small bowel obstruction Sepsis Pneumonia UTI Abnormal EKG Bilateral pleural effusion Right hydronephrosis Metastatic cervical cancer Admit to medicine NG tube place, surgery was consulted to see the patient Start IV Zosyn, Levaquin, follow cultures Check cardiac enzymes,echo, cardiology was consulted see the patient Have discussed DNR with the patient, she agreed but has not rescinded the DO NOT RESUSCITATE DVT prophylaxis initiated
--- NOTE | 2017-01-31 07:27 | Admit Criteria Form ---
Admission Criteria Documentation: GASTROENTEROLOGY GRG Clinical Indications for Admission to Inpatient Care (Place 'X' for any and all applicable criteria): Hospital admission is needed for appropriate care of the patient because of ANY ONE of the following: [ ]I. Hemoperitoneum(7) [ ]II. Ascites requiring acute treatment indicated by ANY ONE of the following( 8)(9): [ ]a) Hemodynamic instability remaining after emergency or observation level care (as appropriate) [ ]b) Peritoneal signs present (eg, abdominal rigidity, rebound tenderness, absent bowel sounds) [ ]c) Tachypnea, Hypoxemia, or other respiratory symptoms remain after emergency or observation level care (as appropriate) [ ]d) Suspected infected ascites as indicated by ANY ONE of the following: [ ]i) Temperature greater than 100 degrees F (37.8 degrees C) [ ]ii) Abdominal pain or tenderness not relieved by paracentesis [ ]iii) Systemic signs of infection (eg, elevated WBC count, fever) [ ]iv) Ascitic fluid analysis consistent with infection ( eg, elevated WBC count): [ ]v) Vital sign abnormality [ X]III. Suspected acute intra-abdominal process indicated by ANY ONE of the following(1)(2)(3)(4)(5): [ ]a) Hemodynamic instability [ ]b) Peritoneal signs present (eg, abdominal rigidity, rebound tenderness, absent bowel sounds) [ X]c) Bowel obstruction suspected (eg, severe vomiting, abdominal distension) [ ]d) Suspected mesenteric ischemia or ischemic colitis(6) [ ]e) Other signs or symptoms of acute abdominal disease (eg, severe pain, free air): [ ]IV. Severe liver disease indicated by ANY ONE of the following(8)(9)(10)(11)( 12)(13)(14): [ ]a) Acute hepatitis (eg, transaminase level greater than 1000 IU/L) [ ]b) Acute elevation of prothrombin time to more than 50% above normal or INR greater than 1.5 [ ]c) Bilirubin greater than 20 mg/dL (342 micromoles/L) (15) [ ]d) New-onset or worsening hepatic encephalopathy [ ]e) Acute liver necrosis [ ]f) Vomiting or dehydration that is severe of persistent [ ]g) Hemodynamic instability due to liver disease [ ]h) Acute renal failure [ ]i) Hepatic abscess [ ]j) Dehydration that is severe or persistent [ ]k) Hepatic hydrothorax(21) [ ]l) Other indications of severe liver disease (eg, persistent fever , ingestion of hepatotoxin) [ ]V. Severe diarrhea indicated by ANY ONE of the following(17)(18)(19)(20)(21)( 22)(23): [ ]a) High fever or other high-risk infection situation [ ]b) Intractable bloody diarrhea (eg, more than 6 bloody stools per day) [ ]c) Suspected Clostridium difficile-associated diarrhea(24) [ ]d) Change in mental status that persists after emergency or observation level care (as appropriate) [ ]e) Severe dehydration (eg, greater than 9% loss of body weight in children) [ ]f) Inability to maintain hydration [ ]g) Peritoneal signs present (eg, abdominal rigidity, rebound tenderness, absent bowel sounds) [ ]h) Abdominal ischemia suspected(6) [ ]i) Hemodynamic instability that persists after emergency or observation level care (as appropriate) [ ]j) Severe electrolyte abnormalities requiring inpatient care [ ]k) Acute renal failure [ ]. Suspected toxic megacolon(5)(6) [ ]VII.Severe dysphagia indicated by ANY ONE of the following(25)(26): [ ]a) Suspected esophageal perforation or fistula(27) [ ]b) Suspected cause that requires inpatient care (eg, caustic ingestion, severe esophagitis) (28) [ ]c) Severe dehydration (eg, greater than 9% loss of body weight in children) [ ]d) Inability to manage secretions or maintain hydration [ ]e) Hemodynamic instability that persists after emergency or observation level care (as appropriate) [ ]f) Severe electrolyte abnormalities requiring inpatient care [ ]g) Acute renal failure [ ]VIII.Vomiting and ANY ONE of the following (29)(30)(31)(32): [ ]a) High fever or other high-risk infection situation [ ]b) Change in mental status that persists after emergency or observation level care (as appropriate) [ ]c) Severe dehydration (e.g., greater than 9% loss of body weight in children) [ ]d) Peritoneal signs present (e.g., abdominal rigidity, rebound tenderness, absent bowel sounds) [ ]e) Hemodynamic instability that persists after emergency or observation level care (as appropriate) [ ]f) Severe electrolyte abnormalities requiring inpatient care [ ]g) Acute renal failure [ ]h) Bowel obstruction suspected (e.g., severe vomiting, abdominal distension) [ ]i) Vomiting that is severe or persistent after medical treatment [ ]IX. Significant dehydration indicated by ANY ONE of the following(23)(24)(25) [ ]a) Clinical findings of severe dehydration indicated by ANY ONE of the following: [ ]i) Acute loss of weight from baseline (5% of body weight in adults, 9% in pediatric patients) [ ]ii) Hemodynamic instability [ ]iii) Acute renal failure [ ]iv) Serum sodium greater than 150 mEq/L (mmol/L) [ ]b) Dehydration that is persistent indicated by ALL of the following: [ ]i) Oral rehydration therapy not tolerated or insufficient to adequately correct dehydration [ ]ii) Appropriate intravenous treatment (eg, fluids) does not readily correct dehydration hours of (ie, after 12 to 24 of treatment) [ ]X. Gastroparesis and ANY ONE of the following(37)(38)(39): [ ]a) Dehydration that is severe or persistent [ ]b) Severe electrolyte abnormalities requiring inpatient care [ ]c) Acute renal failure [ ]d) Vomiting that is severe or persistent [ ]XI. Complications of transplanted liver indicated by ANY ONE of the following (40)(41): [ ]a) Acute graft rejection requiring inpatient management (eg, intravenous immunosuppression)(42) [ ]b) Failure of transplanted liver as indicated by ANY ONE of the following: [ ]i) Acute hepatitis (eg, transaminase level greater than 1000 International Units per liter (IU/L)) [ ]ii) Acute elevation of prothrombin time to more than 50% above baseline or INR greater than 1.5 [ ]iii) Bilirubin greater than 20 mg/dL (342 micromoles/L) [ ]iv) New-onset or worsening hepatic encephalopathy [ ]v) Acute elevation of serum ammonia level (eg, greater than 210 mcg/dL (150 micromoles/L)) [ ]vi) Acute liver necrosis [ ]c) Infection requiring inpatient management (eg, Hemodynamic instability, need for intravenous antimicrobial treatment)(43)(44)(45)(46)(47)(48)(49)(50) [ ]d) Other complication of transplanted liver (eg, thrombosis, autoimmune hepatitis, variceal bleeding) requiring inpatient management(51)(52) [ ]XII Complications of transplanted pancreas indicated by ANY ONE of the following(53): [ ]a) Acute graft rejection requiring inpatient management (eg, intravenous immunosuppression)(42)(54) [ ]b) Failure of transplanted pancreas as indicated by ANY ONE of the following: [ ]i) Serum amylase greater than 3 times the upper limit of normal or baseline [ ]ii) Serum lipase greater than 3 times the upper limit of normal or baseline [ ]iii) Imaging findings consistent with pancreatic inflammation or necrosis [ ]c) Infection requiring inpatient management (eg, Hemodynamic instability, need for intravenous antimicrobial treatment)(43)(44)(45)(46)(47)(48)(49)(50) [ ]d) Other complication of transplanted liver (eg, thrombosis, autoimmune hepatitis, variceal bleeding) requiring inpatient management(51)(52) [ ]X. Gastroenterology condition and ALL of the following: [ ]a) Symptom or finding for which emergency and observation care have failed or are not considered appropriate (Also use General Criteria: Observation Care as appropriate) [ ]b) Presence of ANY ONE of the following: [ ]i) A General Admission Criteria [ ]ii) A Pediatric General Admission Criteria. The original [facility] [email or web address] content created by [email or web address] has been revised. The portions of the content which have been revised are identified through the use of italic text or in bold,and [facility] has neither reviewed nor approved the modified material. All other unmodified content is copyright [facility]. Please see references footnoted in the original [facility] edition 2016 Admission Criteria Met: Yes
--- NOTE | 2017-01-31 07:32 | XRay Report ---
Single view chest: History: Hypotension. Findings: Cardiomegaly. Trachea is midline. Bilateral pleural effusion with mild pulmonary venous congestion. Impression: Cardiomegaly with bilateral pleural effusion.
--- NOTE | 2017-01-31 07:34 | XRay Report ---
Abdomen 2 views: 1:03 AM. History: Vomiting. Findings: Few distended loops of small bowel identified in the left lumbar area. No air-fluid levels. No free intraperitoneal. Bilateral pleural effusion. Apparently stable right ureteral stent. Impression: Few distended loops of small bowel. Incomplete small bowel obstruction or ileus.
--- NOTE | 2017-01-31 07:35 | XRay Report ---
Single view abdomen: History: Tube placement. Findings: Tip of the NG tube is coiled up in the distal esophagus. Should be withdrawn completely and reintroduced. Impression: Findings as detailed above.
[2017-01-31] MEDS: ZOSYN/NS 4.5GM/100ML 4.5 GM/100 ML VIAL IV SCH ×3 (07:38→17:23)
[2017-01-31] MEDS ORDERED: LOVENOX SUB-Q SCH (10:00)
[2017-01-31] MEDS: LEVAQUIN 750MG/150ML 750 MG/150 ML BAG IV SCH (11:21)
[2017-01-31] MEDS: LOVENOX SUB-Q SCH (11:22)
--- NOTE | 2017-01-31 11:29 | Consultation ---
History of Present Illness Consult date: 01/31/17 Consult reason: elevated troponin, other (Abnormal EKG) History of present illness: 61yr old woman with metastatic cervical cancer presents to the ED with complaints of nausea, vomiting with weakness admitted for evaluation. Chest x- ray reports cardiomegaly with bilateral pleural effusions. Abdominal CT reports a mid to distal small bowel obstruction likely caused by metastatic disease. No evidence of pulmonary embolism by CTA. Cardiac consultation is requested for elevated troponin. Noted multiple metabolic abnormalities on laboratory studies including a WBC of 19, BUN of 42 and lactic acid of 3.6. Set of cardiac enzymes demonstrates a normal CK of 55 and normal CK/MB of 4.0. Troponin of 0.24. Patient is resting in bed and appears lethargic. She denies chest pain and shortness of breath. She denies pre-syncope and syncope. Patient reports there is no prior cardiac history. Medications and Allergies Allergies Allergy/AdvReac Type Severity Reaction Status Date / Time meperidine HCl [From Demerol] Allergy Hives Verified 05/20/16 10:17 Home Medications Medication Instructions Recorded Confirmed Last Taken Type No Known Home Medications [No 01/31/17 01/31/17 Unknown History Reported Home Medications] Active Meds: Active Medications Enoxaparin Sodium (Lovenox) 40 mg SUB-Q QDAY@1000 THUY Last Admin: 01/31/17 11:22 Dose: 40 mg Levofloxacin/Dextrose (Levaquin 750mg/150ml) 750 mg in 150 mls @ 100 mls/hr IV Q24HR THUY PRN Reason: Protocol Last Admin: 01/31/17 11:21 Dose: 100 mls/hr Piperacillin Sod/Tazobactam Sod (Zosyn/Ns 4.5gm/100ml) 4.5 gm in 100 mls @ 200 mls/hr IV Q6HR THUY PRN Reason: Protocol Last Admin: 01/31/17 07:38 Dose: 200 mls/hr Sodium Chloride (Nacl 0.9% 500 Ml) 500 mls @ 999 mls/hr IV ONCE NR Stop: 01/31/17 16:00 Metoclopramide HCl (Reglan) 10 mg IV Q6H PRN PRN Reason: Nausea And Vomiting Morphine Sulfate (Morphine) 2 mg IV Q4H PRN PRN Reason: Pain, Moderate (4-6) Ondansetron HCl (Zofran) 4 mg IV Q4H PRN PRN Reason: N/V unrelieved by Reglan Physical Examination Vital Signs Temp Pulse Resp BP Pulse Ox 98.4 F 148 H 12 89/58 96 01/30/17 20:48 01/30/17 20:48 01/30/17 20:48 01/30/17 20:48 01/30/17 20:48 General appearance: no acute distress Cardiac: Positive: Tachycardia Results 01/30/17 20:58 01/30/17 20:58 Assessment and Plan Small maikol obstruction Bilateral pleural effusions Metastatic Cervical cancer Presence of IVC filter Right Hydronephrosis, moderate ureteral stent present UTI Elevated troponin Elevated lactic acid Sinus tachycardia
[2017-01-31] MEDS ORDERED: NACL 0.9% 500 ML 500 ML IV NR (11:30)
--- NOTE | 2017-01-31 13:28 | Consultation ---
Medications and Allergies Allergies Allergy/AdvReac Type Severity Reaction Status Date / Time meperidine HCl [From Demerol] Allergy Hives Verified 05/20/16 10:17 Home Medications Medication Instructions Recorded Confirmed Last Taken Type No Known Home Medications [No 01/31/17 01/31/17 Unknown History Reported Home Medications] Active Meds: Active Medications Enoxaparin Sodium (Lovenox) 40 mg SUB-Q QDAY@1000 THUY Last Admin: 01/31/17 11:22 Dose: 40 mg Levofloxacin/Dextrose (Levaquin 750mg/150ml) 750 mg in 150 mls @ 100 mls/hr IV Q24HR THUY PRN Reason: Protocol Last Admin: 01/31/17 11:21 Dose: 100 mls/hr Piperacillin Sod/Tazobactam Sod (Zosyn/Ns 4.5gm/100ml) 4.5 gm in 100 mls @ 200 mls/hr IV Q6HR THUY PRN Reason: Protocol Last Admin: 01/31/17 07:38 Dose: 200 mls/hr Sodium Chloride (Nacl 0.9% 500 Ml) 500 mls @ 999 mls/hr IV ONCE NR Stop: 01/31/17 16:00 Metoclopramide HCl (Reglan) 10 mg IV Q6H PRN PRN Reason: Nausea And Vomiting Morphine Sulfate (Morphine) 2 mg IV Q4H PRN PRN Reason: Pain, Moderate (4-6) Ondansetron HCl (Zofran) 4 mg IV Q4H PRN PRN Reason: N/V unrelieved by Reglan Exam Vital Signs Temp Pulse Resp BP Pulse Ox 98.4 F 148 H 12 89/58 96 01/30/17 20:48 01/30/17 20:48 01/30/17 20:48 01/30/17 20:48 01/30/17 20:48 Results - Labs 01/30/17 20:58 01/30/17 20:58 Abnormal lab results 01/31/17 Range/Units 11:05 POC Glucose 206 H (70-105) Assessment and Plan 62 y/o female admitted secondary to bowel obst. Pt SOB difficult for her to speak. Hx copied and pasted below: History of present illness: This is a 61-year-old woman with a history of metastatic cervical cancer comes emergency room with complaints of nausea vomiting 1 week intermittently. Her vomiting has worsened over the last 2 days, no appetite, feels weak. Patient status post chemotherapy 4 weeks ago, she met with her oncologist on the last visit, he recommended that the patient be placed on hospice Patient denies chest pain, palpitation, shortness of breath, cough, abdominal pain, hematochezia, dysuria, frequency, focal weakness, dysarthria, fever chills , polydipsia polyuria, hot or cold intolerance, easy bruisability, or rash or bleeding from mucosal membrane, rhinorrhea, epistaxis, earache, tinnitus, blurry vision, eye discharge, anxiety, depression. Other review of systems negative PAST SURGICAL HISTORY: Hysterectomy SOCIAL HISTORY: Denies alcohol, tobacco, drugs FAMILY HISTORY: Hypertension CT abd - diffuse metastatic disease with pancaking of omentum. Liver disease also noted. Abd firm, non tender. imp - terminal diffuse metastatic disease. not a surgical candidate. Pt had her surgery and is being followed at [facility]. May consider transfer there or to hospice. will follow prn Selected Entries 01/31/17 11:00 Temperature 98.0 F Respiratory 18 Rate Blood Pressure 93/66 [Right Arm] Laboratory Tests 01/30/17 01/30/17 01/30/17 20:58 20:58 20:58 WBC 19.6 H Hgb 9.7 L Hct 31.9 Sodium 139 Potassium 4.4 Chloride 93.0 L BUN 42 H Creatinine 0.9 Lactic Acid 3.60 H*
[2017-01-31 13:52] LABS: Creatine Kinase MB 3.2 ng/mL (0.0-4.0)
--- NOTE | 2017-01-31 18:48 | Event Note ---
Date: 01/31/17 Patient was admitted this morning with small bowel obstruction and chest pain Seen and evaluated, medical records reviewed, agree with the current management Patient is critically ill, CODE STATUS discussed with the patient, recommend hospice, however patient requested full CODE STATUS Continue current management. Surgery and cardiology evaluation and recommendations noted and appreciated
[2017-01-31 20:36] LABS: ISTAT Base Excess 2; ISTAT HCO3 26.5; ISTAT PCO2 40.9 (35-45); ISTAT PO2 70 (80-105); ISTAT SITE 1; ISTAT SO2 94; ISTAT TCO2 28
--- NOTE | 2017-01-31 22:29 | Progress Note ---
Assessment and Plan Small maikol obstruction Bilateral pleural effusions Metastatic Cervical cancer Presence of IVC filter Right Hydronephrosis, moderate ureteral stent present UTI Elevated troponin no eveidence of acute VT Elevated lactic acid Conservative course. Patient's blood pressure is unable to tolerate a beta ganesh. No ASA due to increased risk of bleeding with metastatic cancer. Additionally, would not add a statin due to multiple comorbidities and high likelihood of side effects. Further evaluation for ischemia is not reasonable as the patient's prognosis is poor and she is not a candidate for any invasive management. At this time, cardiology has nothing further to offer. Cardiology will sign off. Please re-consult as needed. Subjective Date of service: 02/01/17 Interval history: No acute events. Resting comfortably. No chest pain or SOB. Objective Vital Signs Temp Pulse Pulse Resp BP BP Pulse Ox 01/31/17 20:38 100 01/31/17 20:00 98.3 F 136 H 18 111/74 94 01/31/17 19:50 98.3 F 136 H 18 111/74 71 L 01/31/17 18:37 98.2 F 135 H 24 103/68 94 01/31/17 11:00 98.0 F 98 H 18 93/66 97 01/31/17 07:00 133 H 27 H 91/65 100 01/31/17 06:00 131 H 29 H 106/77 90 - Labs and Meds Cardiac Enzymes 01/31/17 Range/Units 13:00 CK-MB (CK-2) 3.2 (0.0-4.0) ng/mL - Imaging and Cardiology EKG: image reviewed
[2017-02-01] MEDS: ZOSYN/NS 4.5GM/100ML 4.5 GM/100 ML VIAL IV SCH ×2 (00:08→05:07)
[2017-02-01 07:36] LABS: Basophils % (Auto) 0.1 % (0.0-1.8); Hemoglobin 8.5 gm/dl (10.1-14.3); Mean Corpuscular HGB Conc 30 % (30-34); Mean Corpuscular Volume 76 fl (79-97); Platelet Count 330 K/mm3 (140-440); Red Blood Count 3.71 M/mm3 (3.65-5.03); White Blood Count 16.4 K/mm3 (4.5-11.0)
[2017-02-01 07:37] LABS: Mean Corpuscular Hemoglobin 23 pg (28-32)
[2017-02-01 07:53] LABS: BUN/Creatinine Ratio 36.31; Calcium 9.8 mg/dL (8.4-10.2); Chloride 99.3 mmol/L (98-107); Potassium 4.1 mmol/L (3.6-5.0)
--- NOTE | 2017-02-01 09:01 | Progress Note ---
Hospitalist Physical - Constitutional Vitals: Temp Pulse Resp BP Pulse Ox 98.1 F 119 H 20 92/61 98 02/01/17 08:25 02/01/17 08:25 02/01/17 08:25 02/01/17 08:25 02/01/17 08:25 General appearance: Present: no acute distress Results - Labs CBC & Chem 7: 02/01/17 07:06 02/01/17 07:06 Labs: Laboratory Last Values WBC 16.4 K/mm3 (4.5-11.0) H 02/01/17 07:06 RBC 3.71 M/mm3 (3.65-5.03) 02/01/17 07:06 Hgb 8.5 gm/dl (10.1-14.3) L 02/01/17 07:06 Hct 28.0 % (30.3-42.9) L 02/01/17 07:06 MCV 76 fl (79-97) L D 02/01/17 07:06 MCH 23 pg (28-32) L 02/01/17 07:06 MCHC 30 % (30-34) 02/01/17 07:06 RDW 19.0 % (13.2-15.2) H 02/01/17 07:06 Plt Count 330 K/mm3 (140-440) 02/01/17 07:06 Lymph % (Auto) 4.9 % (13.4-35.0) L 02/01/17 07:06 [place] % (Auto) 5.5 % (0.0-7.3) 02/01/17 07:06 Eos % (Auto) 0.0 % (0.0-4.3) 02/01/17 07:06 Baso % (Auto) 0.1 % (0.0-1.8) 02/01/17 07:06 Lymph # 0.8 K/mm3 (1.2-5.4) L 02/01/17 07:06 [place] # 0.9 K/mm3 (0.0-0.8) H 02/01/17 07:06 Eos # 0.0 K/mm3 (0.0-0.4) 02/01/17 07:06 Baso # 0.0 K/mm3 (0.0-0.1) 02/01/17 07:06 Seg Neutrophils % 89.5 % (40.0-70.0) H 02/01/17 07:06 Seg Neutrophils # 14.7 K/mm3 (1.8-7.7) H 02/01/17 07:06 POC ABG pH 7.420 (7.35-7.45) 01/31/17 20:23 POC ABG pCO2 40.9 (35-45) 01/31/17 20:23 POC ABG pO2 70 (80-105) L 01/31/17 20:23 POC ABG HCO3 26.5 01/31/17 20:23 POC ABG Total CO2 28 01/31/17 20:23 POC ABG O2 Sat 94 01/31/17 20:23 POC ABG Base Excess 2 01/31/17 20:23 VBG pH 7.370 (7.320-7.420) 01/30/17 21:50 FiO2 32 % 01/31/17 20:23 Sodium 144 mmol/L (137-145) 02/01/17 07:06 Potassium 4.1 mmol/L (3.6-5.0) 02/01/17 07:06 Chloride 99.3 mmol/L (98-107) 02/01/17 07:06 Carbon Dioxide 26 mmol/L (22-30) 02/01/17 07:06 Anion Gap 23 mmol/L 02/01/17 07:06 BUN 69 mg/dL (7-17) H 02/01/17 07:06 Creatinine 1.9 mg/dL (0.7-1.2) H D 02/01/17 07:06 Estimated GFR 33 ml/min 02/01/17 07:06 BUN/Creatinine Ratio 36.31 % 02/01/17 07:06 Glucose 141 mg/dL (65-100) H 02/01/17 07:06 POC Glucose 206 (70-105) H 01/31/17 11:05 Lactic Acid 3.60 mmol/L (0.7-2.0) H* 01/30/17 20:58 Calcium 9.8 mg/dL (8.4-10.2) D 02/01/17 07:06 Magnesium 2.20 mg/dL (1.7-2.3) 01/30/17 20:58 Total Bilirubin 0.60 mg/dL (0.1-1.2) 01/30/17 20:58 AST 20 units/L (5-40) 01/30/17 20:58 ALT 12 units/L (7-56) 01/30/17 20:58 Alkaline Phosphatase 173 units/L (35-129) H 01/30/17 20:58 Total Creatine Kinase 38 units/L (30-135) 01/31/17 13:00 CK-MB (CK-2) 3.2 ng/mL (0.0-4.0) 01/31/17 13:00 CK-MB (CK-2) Rel Index 8.4 (0-4) H 01/31/17 13:00 Troponin T 0.177 ng/mL (0.00-0.029) H* 01/31/17 13:00 Total Protein 7.8 g/dL (6.3-8.2) 01/30/17 20:58 Albumin 3.5 g/dL (3.9-5) L 01/30/17 20:58 Albumin/Globulin Ratio 0.8 % 01/30/17 20:58 Triglycerides 202 mg/dL (2-149) H 01/30/17 Unknown Cholesterol 145 mg/dL (50-199) 01/30/17 Unknown LDL Cholesterol Direct 57 mg/dL (50-130) 01/30/17 Unknown HDL Cholesterol 48 mg/dL (40-59) 01/30/17 Unknown Cholesterol/HDL Ratio 3.02 % 01/30/17 Unknown TSH 1.490 mlU/mL (0.270-4.200) 01/30/17 20:58 Urine Color [place] (Yellow) 01/30/17 22:45 Urine Turbidity Cloudy (Clear) 01/30/17 22:45 Urine pH 5.0 (5.0-7.0) 01/30/17 22:45 Ur Specific [place] 1.023 (1.003-1.030) 01/30/17 22:45 Urine Protein 100 mg/dl mg/dL (Negative) 01/30/17 22:45 Urine Glucose (UA) 50 mg/dL (Negative) 01/30/17 22:45 Urine Ketones Tr mg/dL (Negative) 01/30/17 22:45 Urine Blood Mod (Negative) 01/30/17 22:45 Urine Nitrite Neg (Negative) 01/30/17 22:45 Urine Bilirubin Neg (Negative) 01/30/17 22:45 Urine Urobilinogen 4.0 mg/dL (<2.0) 01/30/17 22:45 Ur Leukocyte Esterase Lg (Negative) 01/30/17 22:45 Urine WBC (Auto) 55.0 /HPF (0.0-6.0) H 01/30/17 22:45 Urine RBC (Auto) 106.0 /HPF (0.0-6.0) 01/30/17 22:45 U Epithel Cells (Auto) 4.0 /HPF (0-13.0) 01/30/17 22:45 Urine Bacteria (Auto) 1+ /HPF (Negative) 01/30/17 22:45 Uric Acid Crystals 1+ 01/30/17 22:45 Urine Mucus 1+ /HPF 01/30/17 22:45 Salicylates < 0.3 mg/dL (2.8-20.0) L 01/30/17 20:58 Urine Opiates Screen Presumptive negative 01/30/17 22:45 Urine Methadone Screen Presumptive negative 01/30/17 22:45 Acetaminophen < 15.0 ug/mL (10.0-30.0) 01/30/17 20:58 Ur Barbiturates Screen Presumptive negative 01/30/17 22:45 Ur Phencyclidine Scrn Presumptive negative 01/30/17 22:45 Ur Amphetamines Screen Presumptive negative 01/30/17 22:45 U Benzodiazepines Scrn Presumptive negative 01/30/17 22:45 Urine Cocaine Screen Presumptive negative 01/30/17 22:45 U Marijuana (THC) Screen Presumptive negative 01/30/17 22:45 Drugs of Abuse Note Disclamer 01/30/17 22:45 Plasma/Serum Alcohol < 0.01 gm% (0-0.07) 01/30/17 20:58
[2017-02-01] MEDS ORDERED: NACL 0.9% 1000 ML 1,000 ML IV SCH (10:00)
[2017-02-01] MEDS: LOVENOX SUB-Q SCH (10:50)
[2017-02-01] MEDS: LEVAQUIN 750MG/150ML 750 MG/150 ML BAG IV SCH (11:52)
[2017-02-01] MEDS: ZOSYN/NS 2.25 GM/50ML 2.25 GM/50 ML BAG IV SCH ×2 (13:00→17:59)
--- NOTE | 2017-02-01 14:37 | Discharge Summary ---
Providers - Providers Date of Admission: 01/31/17 05:35 Date of discharge: 02/01/17 Attending physician: NORMAN BUTTS Primary care physician: CABLE HOOKER Hospitalization Reason for admission: nausea vomiting abdominal pain Condition: Stable Pertinent studies: Chest x-ray; cardiomegaly with bilateral pleural effusion Abdominal and pelvis CT; peritoneal metastasis/carcinomatosis, mid to distal small bowel obstruction, cholelithiasis, moderate right hydronephrosis, multiple low-density lesions possible metastatic disease Chest CTA; the traits with moderate effusions no evidence of PE nasogastric tube in the lower esophagus[corrected] Echocardiogram; left ventricular ejection fraction 25-30% moderate pleural effusion Hospital course: Very unfortunate 61-year-old female patient with significant past medical history of metastatic cervical cancer was admitted through emergency room with a history of nausea vomiting and abdominal pain Patient was initially evaluated, noted to have small bowel obstruction sepsis and pneumonia Patient was symptomatically managed, evaluated by surgery, in view of the terminal diffuse metastatic disease with planned caking of omentum and liver, patient is not a candidate for surgical procedure, Patient also had positive cardiac enzymes, evaluated by production support consultant, advised medical management, no workup was recommended Patient was critically ill, patient's condition and poor prognosis and CODE STATUS discussed with the patient, she requested full CODE STATUS however opted for home with hospice The day of discharge patient was comfortable, critically ill, vital signs were stable Was discharged with guarded prognosis Final diagnosis; Advanced metastatic cervical cancer Small bowel obstruction Hydronephrosis Cachexia Mild to moderate protein calorie malnutrition 2 diabetes mellitus Disposition: DC-50 TO HOSPICE (HOME) Time spent for discharge: 32 min Core Measure Documentation - Palliative Care Palliative Care/ Comfort Measures: Hospice Care - Core Measures Any of the following diagnoses?: none Exam - Constitutional Vitals: Temp Pulse Resp BP Pulse Ox 97.6 F 118 H 18 103/70 98 02/01/17 11:40 02/01/17 11:40 02/01/17 11:40 02/01/17 11:40 02/01/17 11:40 General appearance: Present: no acute distress, well-nourished, cachectic - EENT Eyes: Present: PERRL, EOM intact - Neck Neck: Present: supple, normal ROM - Respiratory Respiratory effort: normal Respiratory: bilateral: diminished, rales, negative: rhonchi, wheezing - Cardiovascular Rhythm: regular Heart Sounds: Present: S1 & S2 - Extremities Extremities: no ischemia, pulses intact, pulses symmetrical - Abdominal General gastrointestinal: Present: soft, non-tender, non-distended, normal bowel sounds - Integumentary Integumentary: Present: clear, warm - Musculoskeletal Musculoskeletal: strength equal bilaterally - Psychiatric Psychiatric: appropriate mood/affect, cooperative - Neurologic Neurologic: CNII-XII intact, moves all extremities Plan Activity: advance as tolerated Diet: advance as tolerated Additional Instructions: Discharged to home hospice. PMD one week. Private Oncologist per schedule. Private surgery as needed Follow up with: PRIMARY CARE, [Primary Care Provider] - 3-5 Days Prescriptions: Promethazine [Phenergan 6.25 mg/5 ml ORAL LIQ] 10 ml PO Q6H PRN 30 Days PRN Reason: Nausea And Vomiting
[2017-02-01 20:57] VITALS: BP 126/83
[2017-02-02] MEDS ORDERED: LEVAQUIN 750MG/150ML 750 MG/150 ML BAG IV SCH (10:00)
== END 2017-02-01 22:10 | disposition hospice, home (50) | DRG 871 ==
LOC: ED 20:38 → 4A 01-31 05:35
PROVIDERS: ADMIT Internal Medicine; ATTEND Internal Medicine
PROC: 4A033R1 Measurement of Arterial Saturation, Peripheral, Percutaneous Approach (ICD-10-PCS; principal; 2017-01-31)
DX: A41.9 Sepsis, unspecified organism (principal); J18.9 Pneumonia, unspecified organism; N39.0 Urinary tract infection, site not specified; K56.60 Unspecified intestinal obstruction; E86.0 Dehydration; D64.9 Anemia, unspecified; Z87.442 Personal history of urinary calculi; Z88.5 Allergy status to narcotic agent; Z90.710 Acquired absence of both cervix and uterus; Z82.49 Family history of ischemic heart disease and other diseases of the circulatory system; Z92.21 Personal history of antineoplastic chemotherapy; Z85.41 Personal history of malignant neoplasm of cervix uteri
CPT/HCPCS: 36415; 36600; 71010; 71275; 74000; 74020; 74177; 80048; 80053; 80061; 80307; 80320; 81001; 82140; 82550; 82553; 82803; 82805; 82962; 83735; 84443; 84484; 85025; 87040; 87086; 93005; 93010; 93306; 94760; 96361; 96365; 96366; 96375; 99285; G0480; J1200; J1650; J1956; J2405; J2543; J2765; J3370; J7030; J7040; Q9967